=== PATIENT | female | born 1990 | race African-American/Black ===

== ENCOUNTER 2021-03-29 16:38 | Emergency (ER) | payer OTHER ==
[~2021-03-29] VITALS: Ht 165.1 cm; Wt 84.6 kg
[2021-03-29 21:37] LABS: BASO % 0.3 % (0.0-1.0); EOS # 0.1 10^3/uL (0.0-0.5); EOS % 2.3 % (0.0-3.0); HEMATOCRIT 38.2 % (36.0-47.0); HEMOGLOBIN 12.4 g/dl (12.0-15.5); LYMPH % 33.4 % (24.0-44.0); MEAN CORPUSCULAR HGB CONC 32.5 g/dl (32.0-36.5); MONO # 0.7 10^3/uL (0.0-0.8); NEUTROPHILS # 3.2 10^3/uL (1.5-8.5); NEUTROPHILS % 52.7 % (36.0-66.0); PLATELET COUNT, AUTOMATED 301 10^3/uL (150-450)
[2021-03-29 22:20] LABS: ALBUMIN 3.7 GM/DL (3.2-5.2); ALT/SGPT 23 U/L (12-78); BILIRUBIN,DIRECT < 0.1 MG/DL (0.0-0.2); BILIRUBIN,TOTAL 0.2 MG/DL (0.2-1.0); HCG, SERUM QUANTITATIVE 9731 MIU/ML; LIPASE 196 U/L (73-393); TOTAL PROTEIN 7.3 GM/DL (6.4-8.2)
--- NOTE | 2021-03-30 01:09 | REPVR ---
PROCEDURE INFORMATION: Exam: US First Trimester, Transabdominal and US Duplex Artery and Vein, Ovaries, Complete Exam date and time: 03/29/2021 11:46 PM Age: 30 years old Clinical indication: complicated by abdominal or pelvic pain; Left lower quadrant; First trimester; Gestational age or lmp: Unk; ; Additional info: Abdominal pain llq TECHNIQUE: Imaging protocol: Real-time transabdominal obstetrical ultrasound of the maternal pelvis and a first trimester , less than 14 weeks 0 days, with image documentation. Real-time duplex ultrasound scan of the arterial and venous flow of the ovaries with B-mode, color Doppler flow and spectral waveform analysis, complete duplex. COMPARISON: No relevant prior studies available. FINDINGS: Gestation: Single intrauterine gestational sac measuring 1.5 x 0.6 x 1.5 cm. No yolk sac or pole are appreciated. Extra-embryonic membranes/Placenta: Small subchorionic hemorrhage. Amniotic fluid: Amniotic fluid is normal for gestational age. BIOMETRY: Gestational age (AUA): 5 weeks 6 days. MATERNAL: Uterus: Uterus measures 11 x 6.2 x 7 cm. Intramural 1 cm fibroid in the anterior uterine body. Cervix: Unremarkable. Right adnexa: Right ovary measures 3.3 x 2 x 2.5 cm. Normal waveforms. There is a 2 x 1.6 x 1.7 cm right ovarian corpus luteal cyst. Left adnexa: Left ovary measures 4 x 2 x 2.3 cm. Normal waveforms. Intraperitoneal space: No intraperitoneal free fluid. IMPRESSION: Single intrauterine gestation approximately 5 weeks 6 days of age. No yolk sac or pole are appreciated. Recommend continued beta HCG follow-up and repeat ultrasound in 1 to 2 weeks. Small subchorionic hemorrhage. No evidence of ovarian torsion bilaterally. 2 x 1.6 x 1.7 cm right ovarian corpus luteal cyst. Small intramural uterine fibroid. Electronically signed by: Vick Peña On 03/30/2021 01:08:50 AM
[2021-03-30 01:54] VITALS: BP 117/70
== END 2021-03-30 01:57 | disposition home or self-care (01) ==
LOC: M ED 16:38
DX: O26.91 Pregnancy related conditions, unspecified, first trimester (principal); Z3A.01 Less than 8 weeks gestation of pregnancy

== ENCOUNTER 2021-04-05 15:21 | Emergency (ER) | payer OTHER ==
[~2021-04-05] VITALS: Ht 165.1 cm; Wt 81.4 kg
[2021-04-05 15:22] VITALS: BP 113/67
[2021-04-06] MEDS ORDERED: REGL10TA6 PO (08:43)
== END 2021-04-05 22:30 | disposition left against medical advice (07) ==
LOC: M ED 15:21
DX: Z53.21 Procedure and treatment not carried out due to patient leaving prior to being seen by health care provider (principal)

== ENCOUNTER 2021-04-06 06:47 | Emergency (ER) | payer OTHER ==
[~2021-04-06] VITALS: Ht 165.1 cm; Wt 81.4 kg
[2021-04-06] MEDS ORDERED: METOCLOPRAMIDE INJ 10MG/2ML VIAL (J2765 PER 1) IV ONE (07:15)
[2021-04-06] MEDS ORDERED: NS 1,000 ML IV ONE (07:15)
[2021-04-06] MEDS ORDERED: REGL10TA6 PO (08:43)
[2021-04-06 08:53] VITALS: BP 97/56
== END 2021-04-06 08:55 | disposition home or self-care (01) ==
LOC: M ED 06:47
DX: O21.9 Vomiting of pregnancy, unspecified (principal); Z3A.00 Weeks of gestation of pregnancy not specified
CPT/HCPCS: 80047; 84702; 96361; 96374; 99284; J2765

== ENCOUNTER → 2021-06-24 | Outpatient (CLI) | payer SELFPAY ==
[~2021-06-24] MED LIST: REGL10TA6 PO
--- NOTE | 2021-06-24 16:20 | REP ---
INDICATION: PRE EMPLOYMENT EXAM TB SCREENING. COMPARISON: None. TECHNIQUE: PA and lateral views FINDINGS: The superior mediastinal structures are midline. The cardiac silhouette is unremarkable in size, shape, and position. The diaphragmatic surfaces of the lungs are regular, and the costophrenic angles are clear. The pulmonary anders are clear. The imaged osseous structures are intact. IMPRESSION: There is no acute cardiopulmonary disease. <Electronically signed by Caio Cardenas > 06/24/21 [id number]
== END ==
LOC: M WUC 15:58
PROVIDERS: ATTEND Family Medicine Adult Medicine
DX: Z11.1 Encounter for screening for respiratory tuberculosis (principal)